=== PATIENT | female | born 1970 | race Caucasian/White ===

== ENCOUNTER 2017-03-19 07:21 | Day surgery (SDC) | payer OTHER ==
[2017-03-15 09:19] LABS: HEMOGLOBIN 13.7 g/dL (12.0-16.0)
[~2017-03-19 07:21] MED LIST: ESTRADIOL2 MG PO; FORTAMET500 MG PO; LEVSINTAB SL; VITAMINS PO; VYVANSE60 MG PO; XYREM PO/LIQ; ZANTAC150 MG PO; ZYRTEC ALLGY10 MG PO
== END 2017-03-19 23:59 | disposition home or self-care (01) ==
LOC: SDC 07:21
PROVIDERS: Otolaryngology
DX: H90.5 Unspecified sensorineural hearing loss (principal); Z53.9 Procedure and treatment not carried out, unspecified reason
CPT/HCPCS: 82962; 85014; 85018; A9270-GY; J0690; J2250; J3010